=== PATIENT | female | born 1980 | race Two or more races ===

== ENCOUNTER 2019-12-14 06:00 | Day surgery (SDC) | payer OTHER ==
[2019-12-14] MEDS ORDERED: NAPROXEN SODIU500 M1 PO (09:19)
[2019-12-14] MEDS ORDERED: MORGIDOX100 MG PO (09:19)
== END 2019-12-14 13:40 | disposition home or self-care (01) ==
LOC: CIR.AMB 06:00
PROVIDERS: ATTEND Obstetrics & Gynecology
DX: D25.0 Submucous leiomyoma of uterus (principal); N84.0 Polyp of corpus uteri